=== PATIENT | male | born 1980 | race African-American/Black ===

== ENCOUNTER 2020-02-05 05:34 | Observation (INO) | payer OTHER ==
[~2020-02-05] VITALS: Ht 170.2 cm; Wt 78.0 kg
--- NOTE | 2020-02-05 05:34 | NUR ---
PT TO ROOM VIA EMS STRETCHER FOR BEDSIDE TRIAGE, PT HAS IV 20G IN RFA STARTED AT [facility] PER REPORT FOR FACILITY NURSE. PT ABLE TO STAND AND TRANSFER FROM STRETCHER TO STRETCHER
[2020-02-05] MEDS ORDERED: LISINOPRIL40 MG PO (05:55)
[2020-02-05] MEDS ORDERED: ASPIRIN ENTERIC81 MG PO (05:56)
[2020-02-05] MEDS ORDERED: METFORMIN HCL1000 MG PO (05:56)
[2020-02-05] MEDS ORDERED: LIPITOR10 M1 PO (05:57)
--- NOTE | 2020-02-05 06:29 | NUR ---
PT MEDICATED FOR PAIN ORDERED, AND ABT STARTED AFTER BC X 2 OBTAINED, CALL JEREZ WITHIN REACH AND GUARDS AT BEDSIDE, WILL CONTINUE TO MONITOR
[2020-02-05 06:32] LABS: HEMATOCRIT 41.9 % (39.0-50.0); HEMOGLOBIN 13.3 g/dl (14.0-18.0); IMMATURE GRANULOCYTES 0.2 % (0.0-5.0); MEAN CELL VOLUME 88.6 fL CALC (80.0-100.0); MEAN CORPUSCULAR HGB 28.1 pG CALC (26.0-32.0); MEAN CORPUSCULAR HGB CONC 31.7 g/dL CAL (32.0-36.0); NEUT# 5.14 thou/uL (1.82-7.42); RED BLOOD COUNT 4.73 mill/uL (4.70-6.10); RED CELL DISTRI WIDTH 14.4 % (11.5-15.5)
[2020-02-05 06:38] LABS: ALBUMIN 4.1 g/dL (3.2-5.0); ALKALINE PHOSPHATASE 39 u/l (38-126); AMYLASE 68 u/l (30-110); ANION GAP 9 (6-22 (CALC)); BILIRUBIN, TOTAL 0.4 mg/dL (0.0-1.4); BUN 11 mg/dL (9-20); BUN/CREATININE RATIO 11 (12-20 (CALC)); CARBON DIOXIDE 25 mmol/l (22-30); CHLORIDE 108 mmol/l (95-108); GFR > 60 ML/MIN (>=60 (CALC)); GFR FOR AFR.AMER. > 60 ML/MIN (>=60 (CALC)); LIPASE 42 u/l (23-300); POTASSIUM 3.4 mmol/l (3.5-5.1); SGOT/AST 29 u/l (17-59); SODIUM 138 mmol/l (137-146); TOTAL PROTEIN 7.1 g/dL (6.3-8.2)
--- NOTE | 2020-02-05 07:00 | NUR ---
REPORT TAKEN ON PATIENT. PT IN CT
--- NOTE | 2020-02-05 07:10 | NUR ---
PT SLEEPING. MED SURG UNABLE TO TAKE REPORT AT THIS TIME
--- NOTE | 2020-02-05 08:07 | NUR ---
PT RESTING ON STRETCHER. AO X 3. SKIN PINK WARM AND DRY. GUARDS AT BEDSIDE. MONITORS IN PLACE. CALL JEREZ AT BEDSIDE. AWAITING RESULTS
[2020-02-05 08:25] LABS: URINE BILIRUBIN - DIPSTICK NEGATIVE (NEGATIVE); URINE BLOOD DIPSTICK NEGATIVE (NEGATIVE); URINE COLOR YELLOW; URINE GLUCOSE - DIPSTICK NEGATIVE (NEGATIVE); URINE KETONE TRACE mg/dL (NEGATIVE); URINE LEUK ESTERASE NEGATIVE (NEGATIVE); URINE NITRITE - DIPSTICK NEGATIVE (Negative); URINE PH 5.5 (4.5-8.0); URINE PROTEIN - DIPSTICK NEGATIVE (NEG-TRACE); URINE UROBILINOGEN - DIPSTICK 0.2 E.U./dL (0.2)
--- NOTE | 2020-02-05 08:27 | NUR ---
PT MEDICATED FOR PAIN 01/05
--- NOTE | 2020-02-05 08:50 | NUR ---
SBAR PRINTED TO FLOOR
--- NOTE | 2020-02-05 09:50 | NUR ---
PT AWAITING ADMISSION
--- NOTE | 2020-02-05 10:06 | NUR ---
BIOFIRE COVID TEST OBTAINED FOR OR
--- NOTE | 2020-02-05 10:32 | NUR ---
SPOKE WITH CAPTAIN AT [facility]. PT PLACED ON TOILET, GUARD IN ATTENDANCE. PT UNABLE TO PASS ANY OBJECT OR STOOL
--- NOTE | 2020-02-05 11:12 | NUR ---
PT CONTINUES TO REFUSE SURGERY.
--- NOTE | 2020-02-05 11:15 | NUR ---
PT REFUSES XRAY. DR PAYAN AWARE
--- NOTE | 2020-02-05 11:17 | NUR ---
DR PAYAN NOTIFIED OF PT REFUSAL OF XRAY;
--- NOTE | 2020-02-05 11:23 | NUR ---
AMA FORM SIGNED. PT WAITING FOR TRANSPORT TO [facility]
--- NOTE | 2020-02-05 12:01 | NUR ---
PT AMBULATORY TO EXIT WITH GUARDS
[2020-02-05 12:02] VITALS: BP 126/60
--- NOTE | 2020-02-06 10:55 | NUR ---
Recieved an order for this patient but he has been DC back to facility.
== END 2020-02-05 12:00 | disposition left against medical advice (07) | DRG 391 ==
LOC: ED 05:34 → ED-I 08:45 → ED 08:48 → MS2 08:49 → ED-I 09:00 → ED 09:00 → ED-I 09:52 → MS2 12:00
PROVIDERS: Emergency Medicine; ADMIT Internal Medicine; ATTEND Internal Medicine
DX: R10.31 Right lower quadrant pain (principal); U07.1 COVID-19; R10.32 Left lower quadrant pain; T18.5XXA Foreign body in anus and rectum, initial encounter; R11.0 Nausea; R63.0 Anorexia; X58.XXXA Exposure to other specified factors, initial encounter; Z00.8 Encounter for other general examination
CPT/HCPCS: G0378; Q9967